=== PATIENT | female | born 1935 | race Caucasian/White ===

== ENCOUNTER 2021-03-14 16:32 | Emergency (ER) | payer OTHER ==
[~2021-03-14] VITALS: Ht 162.6 cm; Wt 49.9 kg
[2021-03-14 16:37] VITALS: BP_SYST 145
--- NOTE | 2021-03-14 18:57 | NUR ---
PT'S FAMILY GAVE TYLENOL
--- NOTE | 2021-03-14 19:50 | NUR ---
Patient does not wish to proceed with medical care recommended by Dr. Quinn. Patient given information related to possible complications, up to and including , which could occur as a result of leaving hospital at this time. Patient verbalizes understanding of risks involved leaving against medical advice. Patient has signed AMA form.
== END 2021-03-14 19:50 | disposition left against medical advice (07) ==
LOC: SED 16:32
DX: M25.551 Pain in right hip (principal); W07.XXXA Fall from chair, initial encounter; Y93.89 Activity, other specified; Y92.89 Other specified places as the place of occurrence of the external cause; Y99.8 Other external cause status
CPT/HCPCS: 99283